=== PATIENT | female | born 1995 | race Two or more races ===

== ENCOUNTER 2018-04-17 21:44 | Emergency (ER) | payer OTHER ==
[2018-04-17] MEDS: SOD CHLORIDE 0.9% 1,000 ML IV (22:25)
[2018-04-17] MEDS: ONDANSETRON 4 MG INJ IV (22:25)
[2018-04-18] MEDS: ONDANSETRON 4 MG INJ IV (00:09)
[2018-04-18] MEDS: SOD CHLORIDE 0.9% 1,000 ML IV (00:43)
== END 2018-04-18 01:46 | disposition home or self-care (01) ==
LOC: FTE 04-18 01:46
DX: R11.2 Nausea with vomiting, unspecified (principal); R10.2 Pelvic and perineal pain
CPT/HCPCS: 81025; 96374; 96375; 99284-25